=== PATIENT | male | born 1970 | race Caucasian/White ===

== ENCOUNTER 2022-05-09 15:12 | Emergency (ER) | payer BC ==
[~2022-05-09] VITALS: Ht 182.9 cm; Wt 149.7 kg
== END 2022-05-09 21:21 | disposition home or self-care (01) ==
LOC: ER 15:12
DX: N20.9 Urinary calculus, unspecified (principal); N13.30 Unspecified hydronephrosis; R91.1 Solitary pulmonary nodule